=== PATIENT | male | born 1960 | race Caucasian/White ===

== ENCOUNTER 2017-03-07 08:40 | Inpatient (IN) | payer OTHER ==
--- NOTE | 2017-03-07 13:06 | HP ---
COWS - Scale Resting Pulse: 0= [place] 80 or Below Sweatin= Chills/Flushing Restless Observation: 3= Extraneous Movement Pupil Size: 2= Moderately Dilated Bone or Joint Aches: 2= Severe Diffuse Aches Runny Nose/ Eye Tearin= Nasal Congestion GI Upset > 30mins: 0= None Tremor Observation: 1= Tremor [place], Not Seen Yawning Observation: 4= Several Times/Minute Anxiety or Irritability: 2=Irritable/Anxious Goose Flesh Skin: 0=Smooth Skin COWS Score: 16 Admission ROS S - HPI Chief Complaint: DETOX TREATMENT FOR HEROIN DEPENDENCE STATING "I NEED HELP". Allergies/Adverse Reactions: Allergies Allergy/AdvReac Type Severity Reaction Status Date / Time No Known Allergies Allergy Verified 03/07/17 11:13 History of Present Illness: 56 Y/O H/M WITH A HX OF HEROIN DEPENDENCE SEEKING DETOX [place]. PT STATES WAS AT [facility] ER TO SEEK HELP AND WAS REFERRED TO DETOX HERE. FIRST TIME HERE. PT STATES HE HAS NEVER DETOXED BEFORE. Exam Limitations: No Limitations - Ebola screening Have you traveled outside of the country in the last 21 days: No Have you had contact with anyone from an Ebola affected area: No Have you been sick,other than usual withdrawal symptoms: No Do you have a fever: No - Review of Systems Constitutional: Chills, Night Sweats, Changes in sleep EENT: reports: Dental Problems (MISSING TEETH) Respiratory: reports: No Symptoms reported Cardiac: reports: Lightheadedness GI: reports: Constipated, Diarrhea, Nausea, Poor Fluid Intake, Vomiting : reports: Frequency Musculoskeletal: reports: No Symptoms Reported Integumentary: reports: No Symptoms Reported Neuro: reports: Tremors, Dizziness Endocrine: reports: No Symptoms Reported Hematology: reports: No Symptoms Reported Psychiatric: reports: Orientated x3, Anxious, Depressed Other Systems: Reviewed and Negative Patient History - Patient Medical History Hx Anemia: No Hx Asthma: No Hx Chronic Obstructive Pulmonary Disease (COPD): No Hx Cardiac Disorders: No Hx Hypertension: Yes (not on meds.) Hx Hypercholesterolemia: Yes (NOT ON MED) HX Cerebrovascular Accident: No Hx Seizures: No Hx Diabetes: No Hx Gastrointestinal Disorders: No Hx Genitourinary Disorders: No Hx Sexually Transmitted Disorders: No Hx Renal Disease (ESRD): No Hx Thyroid Disease: No Hx Human Immunodeficiency Virus (HIV): No (NEGATIVE HX) Hx Hepatitis C: No Hx Depression: Yes (NOT CURRENTLY ON MED) Hx Suicide Attempt: No (SELF CUTTING 15 YRS AGO; DENIES S/H IDEATIONS TODAY.) Hx Bipolar Disorder: No Hx Schizophrenia: No - Patient Surgical History Past Surgical History: Yes Hx Orthopedic Surgery: Yes (L wrist sx) Anesthesia Reaction: No - PPD History Previous Implant?: Yes Documented Results: Negative w/o proof Implanted On Prior R Admission?: No - Reproductive History Patient is a Female of Child Bearing Age (11 -55 yrs old): No (MALE) Patient : (N/A) - Smoking Cessation Smoking history: Current every day smoker Have you smoked in the past 12 months: Yes Aproximately how many cigarettes per day: 2 Hx Chewing Tobacco Use: No Initiated information on smoking cessation: Yes 'Breaking Loose' booklet given: 03/07/17 - Substance & Tx. History Hx Alcohol Use: No (DENIES) Hx Substance Use: Yes (HEROIN) Substance Use Type: Heroin Hx Substance Use Treatment: No (DENIES PREVIOUS DRUG TX) - Substances Abused Heroin Route: Inhalation Frequency: Daily Amount used: 3 BAGS Age of first use: 22 Date of Last Use: 03/07/17 Family Disease History - Family Disease History Family Disease History: Diabetes: Mother Admission Physical Exam S - Vital Signs Vital Signs: Vital Signs - 24 hr 03/07/17 11:00 Temperature 97 F L Pulse Rate 73 Respiratory 19 Rate Blood Pressure 143/101 - Physical General Appearance: Yes: Moderate Distress, Obese, Irritable, Anxious HEENTM: Yes: EOMI, Normocephalic, HUANG, Pharynx Normal Respiratory: Yes: Chest Non-Tender, Lungs Clear, Normal Breath Sounds, No Respiratory Distress Neck: Yes: No masses,lesions,Nodules, Supple, Trachea in good position Breast: Yes: Breast Exam Deferred Cardiology: Yes: Regular Rhythm, Regular Rate, S1, S2 Abdominal: Yes: Normal Bowel Sounds, Non Tender, Soft, Protuberent Genitourinary: Yes: Other (N/C) Back: Yes: Within Normal Limits Musculoskeletal: Yes: full range of Motion, Gait Steady Extremities: Yes: Normal Range of Motion, Non-Tender, Other (BROWN DISCOLORATION OF SKIN OF BOTH LOWER EXTREMITIES.) 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 - Detox or Rehab [facility] Level of Care: Medically Managed Detox Regimen/Protocol: Methadone [facility] Breath Alcohol Content Breath Alcohol Content: 0 Urine Drug Screen - Results Drug Screen Negative: No Urine Drug Screen Results: OPI-Opiates, TCA-Tricyclic Antidepress
[2017-03-07] MEDS ORDERED: MENTHOL/PHENOL 1 EACH UD MM PRN (14:32)
[2017-03-07] MEDS ORDERED: MAGNESIUM CITRATE 300 ML BOTTLE PO PRN (14:32)
[2017-03-07] MEDS ORDERED: NICOTINE POLACRILEX 2 MG GUM BUC PRN (14:32)
[2017-03-07] MEDS ORDERED: guaiFENesin/D-METHORPHAN HB 10 ML UNIT-DOSE CUPS PO PRN (14:32)
[2017-03-07] MEDS ORDERED: LOPERAMIDE HCL 2 MG CAPSULE PO PRN (14:32)
[2017-03-07] MEDS ORDERED: MAGNESIUM HYDROX 2400MG/30ML ORAL SUSPENSION 30 ML CUP PO PRN (14:32)
[2017-03-07] MEDS ORDERED: P-EPHED 60MG/TRIPROLIDI 2.5MG TABLET PO PRN (14:32)
[2017-03-07] MEDS ORDERED: METHADONE HCL 10 MG TABLET (FOR DETOX USE ONLY) PO ONE ×2 (15:00→23:00)
[2017-03-07] MEDS: diazePAM 5 MG TABLET PO PRN ×3 (15:06→23:27)
[2017-03-07] MEDS: NICOTINE 14 MG/24 HOURS TOPICAL PATCH TD SCH (15:55)
[2017-03-07 17:27] LABS: SGOT/AST 17 U/L (15-37); SGPT/ALT 32 U/L (12-78)
[2017-03-07 17:28] LABS: URINE APPEARANCE CLEAR; URINE BILIRUBIN NEGATIVE (NEGATIVE); URINE BLOOD 3+ (NEGATIVE); URINE COLOR LT. YELLOW; URINE GLUCOSE (UA) TRACE (NEGATIVE); URINE KETONE NEGATIVE (NEGATIVE); URINE LEUK ESTERASE NEGATIVE (NEGATIVE); URINE NITRITE NEGATIVE (NEGATIVE); URINE PROTEIN NEGATIVE (NEGATIVE); URINE UROBILINOGEN 0.2 mg/dL (0.2-1.0)
[2017-03-07 17:30] LABS: ALBUMIN 3.6 g/dl (3.4-5.0); ALK PHOS 95 U/L (45-117); ANION GAP 3 (8-16); BILIRUBIN,TOTAL 0.4 mg/dL (0.2-1.0); CALCIUM 10.6 mg/dL (8.5-10.1); CO2 31 mmol/L (21-32); GLUCOSE,RANDOM 98 mg/dL (74-106); TOT PROT 7.2 g/dl (6.4-8.2)
[2017-03-07 18:24] LABS: URINE BACTERIA RARE /hpf (NONE SEEN); URINE MUCUS RARE; URINE RBC 17 /hpf (0-3); URINE WBC 1 /hpf (3-5)
[2017-03-07 20:07] LABS: MCH 30.2 pg (25.7-33.7); MCHC 33.2 g/dl (32.0-35.9); MEAN CELL VOLUME 90.8 fl (80-96); MEAN PLT VOLUME 8.6 fl (7.5-11.1); PLATELET COUNT 324 K/MM3 (134-434); RDW 14.9 % (11.9-15.9); WHITE BLOOD COUNT 9.1 K/mm3 (4.0-10.0)
[2017-03-07] MEDS: cloNIDine HCL 0.1 MG TABLET PO SCH (22:24)
[2017-03-07] MEDS: THIAMINE HCL 100 MG TABLET (FP) PO SCH (22:24)
[2017-03-07] MEDS: diphenhydrAMINE HCL 50 MG CAPSULE PO PRN (22:24)
[2017-03-08] MEDS ORDERED: METHADONE HCL 10 MG TABLET (FOR DETOX USE ONLY) PO ONE (10:00)
[2017-03-08] MEDS: NICOTINE 14 MG/24 HOURS TOPICAL PATCH TD SCH (10:18)
[2017-03-08] MEDS: cloNIDine HCL 0.1 MG TABLET PO SCH ×2 (10:18→21:58)
[2017-03-08] MEDS: PRENATAL VITAMINS W/ FOLIC ACID TABLET (FP) PO SCH (10:18)
[2017-03-08] MEDS: diazePAM 5 MG TABLET PO PRN ×2 (10:21→18:42)
--- NOTE | 2017-03-08 10:32 | EKG ---
Test Reason : Blood Pressure : / mmHG Vent. Rate : 085 BPM Atrial Rate : 085 BPM P-R Int : 142 ms QRS Dur : 086 ms QT Int : 372 ms P-R-T Axes : 069 029 053 degrees QTc Int : 442 ms NORMAL SINUS RHYTHM NONSPECIFIC ST ABNORMALITY ABNORMAL ECG NO PREVIOUS ECGS AVAILABLE Confirmed by CLIFTON KENNY MD ([id number]) on 03/08/2017 10:31:48 AM Referred By: Tino Gaines Confirmed By:CLIFTON KENNY MD
--- NOTE | 2017-03-08 11:15 | PN ---
[facility] COWS - Scale Resting Pulse: 0= [place] 80 or Below Sweatin= Chills/Flushing Restless Observation: 3= Extraneous Movement Pupil Size: 1= Pupils >than Normal Bone or Joint Aches: 2= Severe Diffuse Aches Runny Nose/ Eye Tearin= Runny Nose/Eyes GI Upset > 30mins: 2= Nausea/Diarrhea Tremor Observation of Outstretched Hands: 2= Slight Tremor Visible Yawning Observation: 1= 1-2x During Session Anxiety or Irritability: 2=Irritable/Anxious Goose Flesh Skin: 0=Smooth Skin COWS Score: 16 S Progress Note (SOAP) Subjective: ALERT,IRRITABLE,ANXIOUS,INTERRUPTED SEEP,TREMOR,PAIN IN THE BODY Objective: 03/08/17 11:11 Vital Signs Temperature 97.3 F L 03/08/17 10:00 Pulse Rate 73 03/08/17 10:00 Respiratory Rate 18 03/08/17 10:00 Blood Pressure 145/86 03/08/17 10:00 O2 Sat by Pulse Oximetry (%) EKG NSR,NON SPECIFIC ST NO CHEST PAIN,NO SOB,NO DIZZINESS Laboratory Last Values WBC 9.1 K/mm3 (4.0-10.0) 03/07/17 14:50 RBC 4.10 M/mm3 (4.00-5.60) 03/07/17 14:50 Hgb 12.4 GM/dL (11.7-16.9) 03/07/17 14:50 Hct 37.3 % (35.4-49) 03/07/17 14:50 MCV 90.8 fl (80-96) 03/07/17 14:50 MCH 30.2 pg (25.7-33.7) 03/07/17 14:50 MCHC 33.2 g/dl (32.0-35.9) 03/07/17 14:50 RDW 14.9 % (11.9-15.9) 03/07/17 14:50 Plt Count 324 K/MM3 (134-434) 03/07/17 14:50 MPV 8.6 fl (7.5-11.1) 03/07/17 14:50 Sickle Cell Screen Negative (NEGATIVE) 03/07/17 14:00 Sodium 138 mmol/L (136-145) 03/07/17 14:00 Potassium 5.1 mmol/L (3.5-5.1) 03/07/17 14:00 Chloride 104 mmol/L (98-107) 03/07/17 14:00 Carbon Dioxide 31 mmol/L (21-32) 03/07/17 14:00 Anion Gap 3 (8-16) L 03/07/17 14:00 BUN 23 mg/dL (7-18) H 03/07/17 14:00 Creatinine 1.0 mg/dL (0.7-1.3) 03/07/17 14:00 Creat Clearance w eGFR > 60 (>60) 03/07/17 14:00 Random Glucose 98 mg/dL (74-106) 03/07/17 14:00 Calcium 10.6 mg/dL (8.5-10.1) H 03/07/17 14:00 Total Bilirubin 0.4 mg/dL (0.2-1.0) 03/07/17 14:00 AST 17 U/L (15-37) 03/07/17 14:00 ALT 32 U/L (12-78) 03/07/17 14:00 Alkaline Phosphatase 95 U/L (45-117) 03/07/17 14:00 Total Protein 7.2 g/dl (6.4-8.2) 03/07/17 14:00 Albumin 3.6 g/dl (3.4-5.0) 03/07/17 14:00 Urine Color Lt. yellow 03/07/17 14:00 Urine Appearance Clear 03/07/17 14:00 Urine pH 6.0 (5.0-8.0) 03/07/17 14:00 Ur Specific [place] 1.020 (1.005-1.025) 03/07/17 14:00 Urine Protein Negative (NEGATIVE) 03/07/17 14:00 Urine Glucose (UA) Trace (NEGATIVE) H 03/07/17 14:00 Urine Ketones Negative (NEGATIVE) 03/07/17 14:00 Urine Blood 3+ (NEGATIVE) H 03/07/17 14:00 Urine Nitrite Negative (NEGATIVE) 03/07/17 14:00 Urine Bilirubin Negative (NEGATIVE) 03/07/17 14:00 Urine Urobilinogen 0.2 mg/dL (0.2-1.0) 03/07/17 14:00 Ur Leukocyte Esterase Negative (NEGATIVE) 03/07/17 14:00 Urine RBC 17 /hpf (0-3) 03/07/17 14:00 Urine WBC 1 /hpf (3-5) 03/07/17 14:00 Urine Bacteria Rare /hpf (NONE SEEN) 03/07/17 14:00 Urine Mucus Rare 03/07/17 14:00 RPR Titer Nonreactive (NONREACTIVE) 03/07/17 14:00 03/08/17 11:14 Assessment: 03/08/17 11:14 WITHDRAWAL SYMPTOM Plan: CONTINUE DETOX,ENCOURAGE ORAL FLUID,REPEAT CMP IN AM
--- NOTE | 2017-03-08 14:21 | CONSULT ---
[facility] Psychiatric Consult - Data Date of interview: 03/08/17 Admission source: [facility] Identifying data: First admission to [facility] for this 56 y/o male seeking detox treatment on for heroin,cocaine (crack) and marihuana dependence (self-report but tox screen is positive only for opiate).Patient is ,a father of one,domiciled,unemployed and supported on Social Security benefits. Substance Abuse History: Discussed with patient in this interview.Mr Cervantes confirms this [facility] report. Smoking Cessation. Smoking history: Current every day smoker. Have you smoked in the past 12 months: Yes. Aproximately how many cigarettes per day: 2. Hx Chewing Tobacco Use: No. Initiated information on smoking cessation: Yes. 'Breaking Loose' booklet given: 03/07/17. - Substance & Tx. History. Hx Alcohol Use: No (DENIES). Hx Substance Use: Yes (HEROIN). Substance Use Type: Heroin. Hx Substance Use Treatment: No (DENIES PREVIOUS DRUG [place]). - Substances Abused. Heroin. Route: Inhalation. Frequency: Daily. Amount used: 3 BAGS. Age of first use: 22. Date of Last Use: 03/07/17 Medical History: Hypertension,hypercholesterolemia and obesity. Psychiatric History: Diagnosed with Schizoaffective Disorder.Patient reports past psychiatric hospitalizations at [facility] in [place] and [facility] in the [place].He indicates that he used to be prescribed risperdal to " stop the voices " and he wishes to resume that drug in this treatment.Mr Cervantes has droppped out of [facility] care for months.Patient admits to a history of suicide attempts by various means (ingestion of rat poison, deliberate self-exposure to oncoming traffic). Physical/Sexual Abuse/Trauma History: Patient denies. Additional Comment: Urine Drug Screen Results: OPI-Opiates, TCA-Tricyclic Antidepressant.Noted. Mental Status Exam - Mental Status Exam Alert and Oriented to: Time, Place, Person Cognitive Function: Good Patient Appearance: Well Groomed (obese,short stature) Mood: Hopeful, Euthymic Affect: Appropriate, Normal Range Patient Behavior: Fatigued, Appropriate, Cooperative Speech Pattern: Clear Voice Loudness: Normal Thought Process: Goal Oriented Thought Disorder: Not Present Hallucinations: Denies Suicidal Ideation: Denies Homicidal Ideation: Denies Insight/Judgement: Poor Sleep: Well Appetite: Good Muscle strength/Tone: Normal Gait/Station: Normal Psychiatric Findings - Problem List ([place] 1, 2,3) (1) Opioid dependence with withdrawal Current Visit: Yes Status: Acute (2) Nicotine dependence Current Visit: Yes Status: Acute (3) Substance induced mood disorder Current Visit: Yes Status: Acute (4) Schizoaffective disorder Current Visit: Yes Status: Chronic Comment: Self-report.Non compliant with medications. (5) Hypertension Current Visit: Yes Status: Chronic Qualifiers: Hypertension type: essential hypertension Qualified Code(s): I10 - Essential (primary) hypertension Comment: NO CURRENT MEDS (6) Hypercholesterolemia Current Visit: Yes Status: Suspected Comment: NO MEDS - Initial Treatment Plan Initial Treatment Plan: Psychoeducation.Detoxification.Medications reconciliation : no Home medications. Review of pharmacy claims : not helpful.No scripts found on record.Will observe without medications (patient asymptomatic).Advised to return to [facility] care after discharge.Patient agrees.Observation.
[2017-03-08] MEDS: diphenhydrAMINE HCL 50 MG CAPSULE PO PRN (21:58)
[2017-03-08] MEDS: THIAMINE HCL 100 MG TABLET (FP) PO SCH (21:58)
[2017-03-09] MEDS: diazePAM 5 MG TABLET PO PRN ×3 (00:43→22:54)
[2017-03-09] MEDS: MAG HYDROX/AL HYDROX/SIMETH 30 ML UNIT-DOSE CUP PO PRN ×3 (04:49→23:44)
[2017-03-09] MEDS ORDERED: METHADONE HCL 5 MG TABLET (FOR DETOX USE ONLY) PO ONE (10:00)
[2017-03-09] MEDS: cloNIDine HCL 0.1 MG TABLET PO SCH ×2 (10:47→22:55)
[2017-03-09] MEDS: PRENATAL VITAMINS W/ FOLIC ACID TABLET (FP) PO SCH (10:47)
[2017-03-09] MEDS: NICOTINE 14 MG/24 HOURS TOPICAL PATCH TD SCH (10:48)
--- NOTE | 2017-03-09 12:47 | PN ---
[facility] COWS - Scale Resting Pulse: 0= [place] 80 or Below Sweatin= Chills/Flushing Restless Observation: 3= Extraneous Movement Pupil Size: 1= Pupils >than Normal Bone or Joint Aches: 2= Severe Diffuse Aches Runny Nose/ Eye Tearin= Runny Nose/Eyes GI Upset > 30mins: 2= Nausea/Diarrhea Tremor Observation of Outstretched Hands: 2= Slight Tremor Visible Yawning Observation: 1= 1-2x During Session Anxiety or Irritability: 2=Irritable/Anxious Goose Flesh Skin: 0=Smooth Skin COWS Score: 16 S Progress Note (SOAP) Subjective: alert,irritable,anxious,interrupted sleep,pain in the body and back Objective: 03/09/17 12:46 Vital Signs Temperature 97.7 F 03/09/17 09:55 Pulse Rate 72 03/09/17 09:55 Respiratory Rate 20 03/09/17 09:55 Blood Pressure 139/96 03/09/17 09:55 O2 Sat by Pulse Oximetry (%) Laboratory Last Values WBC 9.1 K/mm3 (4.0-10.0) 03/07/17 14:50 RBC 4.10 M/mm3 (4.00-5.60) 03/07/17 14:50 Hgb 12.4 GM/dL (11.7-16.9) 03/07/17 14:50 Hct 37.3 % (35.4-49) 03/07/17 14:50 MCV 90.8 fl (80-96) 03/07/17 14:50 MCH 30.2 pg (25.7-33.7) 03/07/17 14:50 MCHC 33.2 g/dl (32.0-35.9) 03/07/17 14:50 RDW 14.9 % (11.9-15.9) 03/07/17 14:50 Plt Count 324 K/MM3 (134-434) 03/07/17 14:50 MPV 8.6 fl (7.5-11.1) 03/07/17 14:50 Sickle Cell Screen Negative (NEGATIVE) 03/07/17 14:00 Sodium 138 mmol/L (136-145) 03/07/17 14:00 Potassium 5.1 mmol/L (3.5-5.1) 03/07/17 14:00 Chloride 104 mmol/L (98-107) 03/07/17 14:00 Carbon Dioxide 31 mmol/L (21-32) 03/07/17 14:00 Anion Gap 3 (8-16) L 03/07/17 14:00 BUN 23 mg/dL (7-18) H 03/07/17 14:00 Creatinine 1.0 mg/dL (0.7-1.3) 03/07/17 14:00 Creat Clearance w eGFR > 60 (>60) 03/07/17 14:00 Random Glucose 98 mg/dL (74-106) 03/07/17 14:00 Calcium 10.6 mg/dL (8.5-10.1) H 03/07/17 14:00 Total Bilirubin 0.4 mg/dL (0.2-1.0) 03/07/17 14:00 AST 17 U/L (15-37) 03/07/17 14:00 ALT 32 U/L (12-78) 03/07/17 14:00 Alkaline Phosphatase 95 U/L (45-117) 03/07/17 14:00 Total Protein 7.2 g/dl (6.4-8.2) 03/07/17 14:00 Albumin 3.6 g/dl (3.4-5.0) 03/07/17 14:00 Urine Color Lt. yellow 03/07/17 14:00 Urine Appearance Clear 03/07/17 14:00 Urine pH 6.0 (5.0-8.0) 03/07/17 14:00 Ur Specific [place] 1.020 (1.005-1.025) 03/07/17 14:00 Urine Protein Negative (NEGATIVE) 03/07/17 14:00 Urine Glucose (UA) Trace (NEGATIVE) H 03/07/17 14:00 Urine Ketones Negative (NEGATIVE) 03/07/17 14:00 Urine Blood 3+ (NEGATIVE) H 03/07/17 14:00 Urine Nitrite Negative (NEGATIVE) 03/07/17 14:00 Urine Bilirubin Negative (NEGATIVE) 03/07/17 14:00 Urine Urobilinogen 0.2 mg/dL (0.2-1.0) 03/07/17 14:00 Ur Leukocyte Esterase Negative (NEGATIVE) 03/07/17 14:00 Urine RBC 17 /hpf (0-3) 03/07/17 14:00 Urine WBC 1 /hpf (3-5) 03/07/17 14:00 Urine Bacteria Rare /hpf (NONE SEEN) 03/07/17 14:00 Urine Mucus Rare 03/07/17 14:00 RPR Titer Nonreactive (NONREACTIVE) 03/07/17 14:00 Assessment: 03/09/17 12:48 withdrawal symptom Plan: continue detox,repeat ua,repeat calcium in am
[2017-03-09] MEDS: diphenhydrAMINE HCL 50 MG CAPSULE PO PRN (22:55)
[2017-03-09] MEDS: THIAMINE HCL 100 MG TABLET (FP) PO SCH (22:55)
[2017-03-10] MEDS ORDERED: METHADONE HCL 5 MG TABLET (FOR DETOX USE ONLY) PO ONE (10:00)
[2017-03-10 10:53] LABS: ALBUMIN 3.1 g/dl (3.4-5.0); ANION GAP 5 (8-16); CALCIUM 10.3 mg/dL (8.5-10.1); CO2 29 mmol/L (21-32)
[2017-03-10 10:59] LABS: ALK PHOS 92 U/L (45-117); BILIRUBIN,TOTAL 0.5 mg/dL (0.2-1.0); GLUCOSE,RANDOM 98 mg/dL (74-106); SGOT/AST 17 U/L (15-37); SGPT/ALT 33 U/L (12-78); TOT PROT 6.2 g/dl (6.4-8.2)
[2017-03-10] MEDS: cloNIDine HCL 0.1 MG TABLET PO SCH ×2 (11:12→23:05)
[2017-03-10] MEDS: diazePAM 5 MG TABLET PO PRN (11:12)
[2017-03-10] MEDS: PRENATAL VITAMINS W/ FOLIC ACID TABLET (FP) PO SCH (11:13)
[2017-03-10] MEDS: NICOTINE 14 MG/24 HOURS TOPICAL PATCH TD SCH (11:13)
--- NOTE | 2017-03-10 13:38 | PN ---
S Progress Note (SOAP) Subjective: ALERT,IRRITABLE,ANXIOUS,INTERRUPTED SLEEP,PAIN IN THE BODY Objective: 03/10/17 13:36 Vital Signs Temperature 97.9 F 03/10/17 10:42 Pulse Rate 81 03/10/17 10:42 Respiratory Rate 20 03/10/17 10:42 Blood Pressure 137/79 03/10/17 10:42 O2 Sat by Pulse Oximetry (%) 03/10/17 13:36 Abnormal Lab Results 03/10/17 07:45 Anion Gap 5 L BUN 27 H Calcium 10.3 H Total Protein 6.2 L Albumin 3.1 L Assessment: 03/10/17 13:37 WITHDRAWAL SYMPTOM Plan: CONTINUE DETOX,ENCOURAGE ORAL FLUID
[2017-03-10] MEDS: hydrOXYzine PAMOATE 25 MG CAPSULE (FP) PO PRN (14:46)
[2017-03-10] MEDS: THIAMINE HCL 100 MG TABLET (FP) PO SCH (23:05)
[2017-03-10] MEDS: diphenhydrAMINE HCL 50 MG CAPSULE PO PRN (23:06)
[2017-03-11] MEDS ORDERED: METHADONE HCL 10 MG TABLET (FOR DETOX USE ONLY) PO ONE (10:00)
[2017-03-11] MEDS: cloNIDine HCL 0.1 MG TABLET PO SCH ×2 (10:41→21:24)
[2017-03-11] MEDS: NICOTINE 14 MG/24 HOURS TOPICAL PATCH TD SCH (10:42)
[2017-03-11] MEDS: PRENATAL VITAMINS W/ FOLIC ACID TABLET (FP) PO SCH (10:42)
[2017-03-11] MEDS: hydrOXYzine PAMOATE 25 MG CAPSULE (FP) PO PRN (10:44)
--- NOTE | 2017-03-11 11:59 | PN ---
S Progress Note (SOAP) Subjective: ALERT,NO COMPLAINT Objective: 03/11/17 11:56 Vital Signs Temperature 97.2 F L 03/11/17 10:41 Pulse Rate 84 03/11/17 10:41 Respiratory Rate 20 03/11/17 10:41 Blood Pressure 149/87 03/11/17 10:41 O2 Sat by Pulse Oximetry (%) Assessment: 03/11/17 11:56 STABLE FOR DISCHARGE Plan: TRANSFER TO REHAB FOR FURTHER LEVEL OF CARE
--- NOTE | 2017-03-11 12:04 | DS ---
[facility] Detox Discharge Summary Admission Date: 03/07/17 Discharge Date: 03/11/17 - History Present History: Opioid Dependence Additional Comments: TRANSFER TO REHAB FOR FURTHER LEVEL OF CARE Pertinent Past History: HYPERTENSION HYPERCHOLESTEROLEMIA SCHIZOAFFECTIVE DISORDER - Physical Exam Results Vital Signs: Vital Signs Temperature 97.2 F L 03/11/17 10:41 Pulse Rate 84 03/11/17 10:41 Respiratory Rate 20 03/11/17 10:41 Blood Pressure 149/87 03/11/17 10:41 O2 Sat by Pulse Oximetry (%) Pertinent Admission Physical Exam Findings: WITHDRAWAL SYMPTOM - Treatment Hospital Course: Detox Protocol Followed, Detoxed Safely, Responded well, Discharged Condition Good, Rehab Referral Accepted Patient has Accepted a Rehab Referral to: [facility] - Medication Discharge Medications: Ambulatory Orders NK [No Known Home Medication] 03/07/17 - Diagnosis (1) Nicotine dependence Current Visit: Yes Status: Acute (2) Opioid dependence with withdrawal Current Visit: Yes Status: Acute (3) Substance induced mood disorder Current Visit: Yes Status: Acute (4) Hypertension Current Visit: Yes Status: Chronic Qualifiers: Hypertension type: essential hypertension Qualified Code(s): I10 - Essential (primary) hypertension (5) Obesity (BMI 30-39.9) Current Visit: Yes Status: Chronic (6) Schizoaffective disorder Current Visit: Yes Status: Chronic (7) Hypercholesterolemia Current Visit: Yes Status: Suspected - AMA Did Patient Leave Against Medical Advice: No
[2017-03-11 15:38] VITALS: BMI 41.3
[2017-03-11] MEDS: MAG HYDROX/AL HYDROX/SIMETH 30 ML UNIT-DOSE CUP PO PRN (20:44)
[2017-03-11] MEDS: THIAMINE HCL 100 MG TABLET (FP) PO SCH (21:24)
[2017-03-11] MEDS: diphenhydrAMINE HCL 50 MG CAPSULE PO PRN (21:24)
[2017-03-12] MEDS: diphenhydrAMINE HCL 50 MG CAPSULE PO PRN ×2 (00:56→21:24)
[2017-03-12] MEDS: MAG HYDROX/AL HYDROX/SIMETH 30 ML UNIT-DOSE CUP PO PRN ×2 (02:35→16:18)
[2017-03-12] MEDS ORDERED: METHADONE HCL 5 MG TABLET (FOR DETOX USE ONLY) PO ONE (06:00)
[2017-03-12] MEDS: ACETAMINOPHEN 325 MG TABLET (FP) PO PRN ×2 (06:20→16:18)
[2017-03-12] MEDS: cloNIDine HCL 0.1 MG TABLET PO SCH ×2 (09:53→21:22)
[2017-03-12] MEDS: PRENATAL VITAMINS W/ FOLIC ACID TABLET (FP) PO SCH (09:53)
[2017-03-12] MEDS: NICOTINE 14 MG/24 HOURS TOPICAL PATCH TD SCH (09:54)
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
[2017-03-12 12:40] LABS: HIV 1 & 2 AB NEGATIVE; HIV 1 AGp24 NEGATIVE
[2017-03-12] MEDS: THIAMINE HCL 100 MG TABLET (FP) PO SCH (21:22)
[2017-03-12] MEDS: risperiDONE 1 MG TABLET (FP) PO SCH (21:22)
[2017-03-13] MEDS: PRENATAL VITAMINS W/ FOLIC ACID TABLET (FP) PO SCH (09:43)
[2017-03-13] MEDS: NICOTINE 14 MG/24 HOURS TOPICAL PATCH TD SCH (09:43)
[2017-03-13] MEDS: cloNIDine HCL 0.1 MG TABLET PO SCH ×2 (09:44→21:20)
[2017-03-13] MEDS: FLUoxetine HCL 10 MG CAPSULE (FP) PO SCH (09:44)
[2017-03-13] MEDS: risperiDONE 1 MG TABLET (FP) PO SCH (21:20)
[2017-03-13] MEDS: THIAMINE HCL 100 MG TABLET (FP) PO SCH (21:20)
[2017-03-13] MEDS: diphenhydrAMINE HCL 50 MG CAPSULE PO PRN (21:20)
[2017-03-14] MEDS: PRENATAL VITAMINS W/ FOLIC ACID TABLET (FP) PO SCH (09:44)
[2017-03-14] MEDS: cloNIDine HCL 0.1 MG TABLET PO SCH ×2 (09:44→21:29)
[2017-03-14] MEDS: NICOTINE 14 MG/24 HOURS TOPICAL PATCH TD SCH (09:44)
[2017-03-14] MEDS: FLUoxetine HCL 10 MG CAPSULE (FP) PO SCH (09:44)
[2017-03-14] MEDS: risperiDONE 1 MG TABLET (FP) PO SCH (21:29)
[2017-03-14] MEDS: diphenhydrAMINE HCL 50 MG CAPSULE PO PRN (21:29)
[2017-03-14] MEDS: THIAMINE HCL 100 MG TABLET (FP) PO SCH (21:29)
[2017-03-15] MEDS: cloNIDine HCL 0.1 MG TABLET PO SCH ×2 (09:36→21:33)
[2017-03-15] MEDS: FLUoxetine HCL 10 MG CAPSULE (FP) PO SCH (09:36)
[2017-03-15] MEDS: PRENATAL VITAMINS W/ FOLIC ACID TABLET (FP) PO SCH (09:36)
[2017-03-15] MEDS: NICOTINE 14 MG/24 HOURS TOPICAL PATCH TD SCH (09:37)
[2017-03-15] MEDS: diphenhydrAMINE HCL 50 MG CAPSULE PO PRN (21:33)
[2017-03-15] MEDS: risperiDONE 1 MG TABLET (FP) PO SCH (21:33)
[2017-03-15] MEDS: THIAMINE HCL 100 MG TABLET (FP) PO SCH (21:33)
[2017-03-15] MEDS: HYDROCORTISONE 2.5% TOPICAL CREAM 30 GM TUBE TP SCH (21:34)
[2017-03-16] MEDS: MAG HYDROX/AL HYDROX/SIMETH 30 ML UNIT-DOSE CUP PO PRN ×2 (00:39→19:47)
[2017-03-16] MEDS: PRENATAL VITAMINS W/ FOLIC ACID TABLET (FP) PO SCH (09:26)
[2017-03-16] MEDS: FLUoxetine HCL 10 MG CAPSULE (FP) PO SCH (09:26)
[2017-03-16] MEDS: HYDROCORTISONE 2.5% TOPICAL CREAM 30 GM TUBE TP SCH ×2 (09:26→21:47)
[2017-03-16] MEDS: cloNIDine HCL 0.1 MG TABLET PO SCH ×2 (09:26→21:46)
[2017-03-16] MEDS: NICOTINE 14 MG/24 HOURS TOPICAL PATCH TD SCH (09:26)
[2017-03-16] MEDS: risperiDONE 1 MG TABLET (FP) PO SCH (21:46)
[2017-03-16] MEDS: THIAMINE HCL 100 MG TABLET (FP) PO SCH (21:47)
[2017-03-16] MEDS: diphenhydrAMINE HCL 50 MG CAPSULE PO PRN (21:48)
[2017-03-17] MEDS: cloNIDine HCL 0.1 MG TABLET PO SCH ×2 (09:31→21:26)
[2017-03-17] MEDS: FLUoxetine HCL 10 MG CAPSULE (FP) PO SCH (09:31)
[2017-03-17] MEDS: HYDROCORTISONE 2.5% TOPICAL CREAM 30 GM TUBE TP SCH ×2 (09:31→21:25)
[2017-03-17] MEDS: PRENATAL VITAMINS W/ FOLIC ACID TABLET (FP) PO SCH (09:31)
[2017-03-17] MEDS: NICOTINE 14 MG/24 HOURS TOPICAL PATCH TD SCH (09:31)
[2017-03-17] MEDS: diphenhydrAMINE HCL 50 MG CAPSULE PO PRN (21:25)
[2017-03-17] MEDS: risperiDONE 1 MG TABLET (FP) PO SCH (21:26)
[2017-03-17] MEDS: THIAMINE HCL 100 MG TABLET (FP) PO SCH (21:26)
[2017-03-17] MEDS: MAG HYDROX/AL HYDROX/SIMETH 30 ML UNIT-DOSE CUP PO PRN (23:13)
[2017-03-18] MEDS: IBUPROFEN 400 MG TABLET (FP) PO PRN ×3 (06:39→17:07)
[2017-03-18] MEDS: PRENATAL VITAMINS W/ FOLIC ACID TABLET (FP) PO SCH (09:49)
[2017-03-18] MEDS: FLUoxetine HCL 10 MG CAPSULE (FP) PO SCH (09:50)
[2017-03-18] MEDS: cloNIDine HCL 0.1 MG TABLET PO SCH ×2 (09:50→21:18)
[2017-03-18] MEDS: NICOTINE 14 MG/24 HOURS TOPICAL PATCH TD SCH (10:57)
[2017-03-18] MEDS: HYDROCORTISONE 2.5% TOPICAL CREAM 30 GM TUBE TP SCH ×2 (10:57→21:18)
[2017-03-18] MEDS ORDERED: LIDOCAINE VISCOUS 2% ORAL/TOP 20 ML UNIT-DOSE CUP MM PRN (14:30)
[2017-03-18] MEDS: WITCH HAZEL 50% (TUCKS) 40 PAD/JAR PAD TP PRN ×2 (14:31→18:18)
[2017-03-18] MEDS ORDERED: PT OWN MED DRAWER 7, Y5N ONE ×2 (14:33→18:18)
--- NOTE | 2017-03-18 14:35 | PN ---
[facility] Progress Note Note: pain in the gum and left lower molar have dental cavity with filling dental cavity with gingivitis pen vee k 500 mgs po q 6hrs for 7 days lidocaine 2% prn motrin 400 mgs po q 6hrs prn
[2017-03-18] MEDS: PENICILLIN V POTASSIUM 500 MG TABLET PO SCH ×2 (17:05→23:53)
[2017-03-18] MEDS: risperiDONE 1 MG TABLET (FP) PO SCH (21:18)
[2017-03-18] MEDS: THIAMINE HCL 100 MG TABLET (FP) PO SCH (21:18)
[2017-03-18] MEDS: diphenhydrAMINE HCL 50 MG CAPSULE PO PRN (21:18)
[2017-03-19] MEDS: PENICILLIN V POTASSIUM 500 MG TABLET PO SCH ×3 (05:49→17:03)
[2017-03-19] MEDS: IBUPROFEN 400 MG TABLET (FP) PO PRN ×2 (05:50→21:28)
[2017-03-19] MEDS: HYDROCORTISONE 2.5% TOPICAL CREAM 30 GM TUBE TP SCH ×2 (09:56→21:27)
[2017-03-19] MEDS: PRENATAL VITAMINS W/ FOLIC ACID TABLET (FP) PO SCH (09:56)
[2017-03-19] MEDS: cloNIDine HCL 0.1 MG TABLET PO SCH ×2 (09:56→21:27)
[2017-03-19] MEDS: WITCH HAZEL 50% (TUCKS) 40 PAD/JAR PAD TP PRN (09:56)
[2017-03-19] MEDS: NICOTINE 14 MG/24 HOURS TOPICAL PATCH TD SCH (09:56)
[2017-03-19] MEDS: FLUoxetine HCL 10 MG CAPSULE (FP) PO SCH (09:56)
[2017-03-19] MEDS ORDERED: PT OWN MED DRAWER 7, Y5N ONE ×3 (09:58→22:49)
--- NOTE | 2017-03-19 13:11 | PN ---
[facility] Progress Note Note: tinea pedis both feet,tinactin cream bid
[2017-03-19] MEDS: TOLNAFTATE 1% CREAM 15 GM TUBE TP SCH ×2 (14:06→21:26)
[2017-03-19] MEDS: risperiDONE 1 MG TABLET (FP) PO SCH (21:27)
[2017-03-19] MEDS: diphenhydrAMINE HCL 50 MG CAPSULE PO PRN (21:27)
[2017-03-19] MEDS: THIAMINE HCL 100 MG TABLET (FP) PO SCH (21:30)
[2017-03-20] MEDS: PENICILLIN V POTASSIUM 500 MG TABLET PO SCH ×5 (06:01→23:35)
[2017-03-20] MEDS: PRENATAL VITAMINS W/ FOLIC ACID TABLET (FP) PO SCH (09:54)
[2017-03-20] MEDS: cloNIDine HCL 0.1 MG TABLET PO SCH ×2 (09:54→21:21)
[2017-03-20] MEDS: FLUoxetine HCL 10 MG CAPSULE (FP) PO SCH (09:54)
[2017-03-20] MEDS: NICOTINE 14 MG/24 HOURS TOPICAL PATCH TD SCH (09:54)
[2017-03-20] MEDS: HYDROCORTISONE 2.5% TOPICAL CREAM 30 GM TUBE TP SCH ×2 (09:55→21:19)
[2017-03-20] MEDS: TOLNAFTATE 1% CREAM 15 GM TUBE TP SCH ×2 (09:55→21:19)
[2017-03-20] MEDS: IBUPROFEN 400 MG TABLET (FP) PO PRN ×2 (09:56→21:20)
[2017-03-20] MEDS: risperiDONE 1 MG TABLET (FP) PO SCH (21:21)
[2017-03-20] MEDS: THIAMINE HCL 100 MG TABLET (FP) PO SCH (21:22)
[2017-03-21] MEDS: PENICILLIN V POTASSIUM 500 MG TABLET PO SCH ×4 (06:14→23:28)
[2017-03-21] MEDS: PRENATAL VITAMINS W/ FOLIC ACID TABLET (FP) PO SCH (09:58)
[2017-03-21] MEDS: NICOTINE 14 MG/24 HOURS TOPICAL PATCH TD SCH (09:59)
[2017-03-21] MEDS: FLUoxetine HCL 10 MG CAPSULE (FP) PO SCH (09:59)
[2017-03-21] MEDS: cloNIDine HCL 0.1 MG TABLET PO SCH ×2 (09:59→21:39)
[2017-03-21] MEDS: HYDROCORTISONE 2.5% TOPICAL CREAM 30 GM TUBE TP SCH ×2 (10:01→21:39)
[2017-03-21] MEDS ORDERED: PT OWN MED DRAWER 7, Y5N ONE (10:01)
[2017-03-21] MEDS: TOLNAFTATE 1% CREAM 15 GM TUBE TP SCH ×2 (10:01→21:39)
--- NOTE | 2017-03-21 14:42 | PN ---
Psychiatric Progress Note Vital Signs: Vital Signs Period Temp Pulse Resp BP Sys/Scott Pulse Ox Last 24 Hr 97.6 F 79-87 18-20 146-153/80-96 Date of Session: 03/21/17 Chief Complaint:: discharge visit HPI: Patient has addressed opioid, nicotine dependence comorbid Schsizoaffective disorder. ROS: Hypertension,hypercholesterolemia and obesity medically managed. Current Medications: Active Medications Generic Name Dose Route Start Last Admin Trade Name Freq PRN Reason Stop Dose Admin Acetaminophen 650 mg 03/07/17 14:32 03/12/17 16:18 Tylenol - PO 650 mg Q4H PRN Administration FEVER OR PAIN Al Hydroxide/Mg Hydroxide 30 ml 03/07/17 14:32 03/17/17 23:13 Mylanta Oral Suspension - PO 30 ml Q6H PRN Administration DYSPEPSIA Clonidine 0.1 mg 03/07/17 22:00 03/21/17 09:59 Catapres - PO 0.1 mg BID MARIANN Administration Diphenhydramine HCl 50 mg 03/07/17 14:32 03/19/17 21:27 Benadryl - PO 50 mg HSMR1 PRN Administration INSOMNIA Eucalyptus/Menthol/Phenol/Sorbitol 1 each 03/07/17 14:32 Cepastat Lozenge - MM Q4H PRN SORE THROAT Fluoxetine HCl 10 mg 03/13/17 10:00 03/21/17 09:59 Prozac - PO 10 mg DAILY MARIANN Administration Guaifenesin 10 ml 03/07/17 14:32 Robitussin Dm - PO Q6H PRN COUGH Hydrocortisone 1 applic 03/15/17 22:00 03/21/17 10:01 Anusol 2.5% Hc Cream - TP 1 applic BID MARIANN Administration Hydroxyzine Pamoate 25 mg 03/07/17 14:32 03/11/17 10:44 Vistaril - PO 25 mg Q4H PRN Administration AGITATION Ibuprofen 400 mg 03/07/17 14:32 03/20/17 21:20 Motrin - PO 400 mg Q6H PRN Administration SEVERE PAIN Lidocaine HCl 20 ml 03/18/17 14:30 Xylocaine 2% Viscous Oral - MM Q6HPO PRN ORAL PAIN/MOUTH SORES Loperamide HCl 4 mg 03/07/17 14:32 Imodium - PO Q6H PRN DIARRHEA Magnesium Citrate 300 ml 03/07/17 14:32 Citroma - PO Q48H PRN CONSTIPATION Magnesium Hydroxide 30 ml 03/07/17 14:32 Milk Of Magnesia - PO DAILY PRN CONSTIPATION Nicotine 14 mg 03/07/17 15:00 03/21/17 09:59 Nicoderm Patch - TD Not Given DAILY MARIANN Nicotine Polacrilex 2 mg 03/07/17 14:32 Nicorette Gum - BUC Q2H PRN NICOTINE REPLACEMENT RX Penicillin V Potassium 500 mg 03/18/17 18:00 03/21/17 12:26 Pen Vee K - PO 500 mg Q6HPO MARIANN Administration Multivit/Folic Acid/Iron 1 tab 03/08/17 10:00 03/21/17 09:58 Vitamins (Sjr) - PO 1 tab DAILY MARIANN Administration Pseudoephedrine/Triprolidine 1 combo 03/07/17 14:32 Actifed - PO TID PRN NASAL CONGESTION Risperidone 1 mg 03/12/17 22:00 03/20/17 21:21 Risperdal - PO Not Given HS MARIANN Thiamine HCl 100 mg 03/07/17 22:00 03/20/17 21:22 Vitamin B1 - PO Not Given HS MARIANN Tolnaftate 1 applic 03/19/17 14:00 03/21/17 10:01 Tinactin 1% Cream - TP Not Given BID MARIANN Witch Roseanna/Glycerin 1 pad 03/14/17 21:32 03/19/17 09:56 Tucks Pads - TP 1 pad PRN PRN Administration PAIN Current Side Effect: No Lab tests ordered: No Lab tests reviewed: Yes Provider note:: Patient will complete his treatment on 03/22/17 and meet his goals , will continue to address his issues at [facility]. OPD, he gained insights into his problems and motivated to continue his abstinence. He focused on importance of changning attitudes, behavior for the utilization of supports to perevent relapses and improving coping skills.Patient reports finding Risperdal and Prozac help to cope with mood instability, anxiety reduction and insomnia (scripts provideded for 30 days ). Supportive therapy privided, patient is stable for discharge tomorrow. Total face to face time:: 15 Mental Status Exam - Mental Status Exam Alert and Oriented to: Time, Place, Person Cognitive Function: Good Patient Appearance: Well Groomed Mood: Hopeful Affect: Appropriate, Mood Congruent, Normal Range Patient Behavior: Appropriate, Cooperative Speech Pattern: Clear, Appropriate Thought Process: Intact Hallucinations: Denies Suicidal Ideation: Denies Homicidal Ideation: Denies Insight/Judgement: Fair Sleep: Fair Appetite: Fair Muscle strength/Tone: Normal Gait/Station: Normal Psychiatric Treatment Plan - Problem List (1) Nicotine dependence Current Visit: Yes (2) Schizoaffective disorder Current Visit: Yes Comment: Self-report.Non compliant with medications. (3) Opioid dependence Current Visit: Yes
[2017-03-21] MEDS: risperiDONE 1 MG TABLET (FP) PO SCH (21:39)
[2017-03-21] MEDS: THIAMINE HCL 100 MG TABLET (FP) PO SCH (21:39)
[2017-03-22] MEDS: PENICILLIN V POTASSIUM 500 MG TABLET PO SCH (06:10)
[2017-03-22] MEDS: IBUPROFEN 400 MG TABLET (FP) PO PRN (06:11)
[2017-03-22 07:01] VITALS: BP 156/100; PULSE 83; TEMP 97.9
[2017-03-22] MEDS: cloNIDine HCL 0.1 MG TABLET PO SCH (09:39)
[2017-03-22] MEDS: NICOTINE 14 MG/24 HOURS TOPICAL PATCH TD SCH (09:39)
[2017-03-22] MEDS: PRENATAL VITAMINS W/ FOLIC ACID TABLET (FP) PO SCH (09:39)
[2017-03-22] MEDS: HYDROCORTISONE 2.5% TOPICAL CREAM 30 GM TUBE TP SCH (09:39)
[2017-03-22] MEDS: FLUoxetine HCL 10 MG CAPSULE (FP) PO SCH (09:39)
[2017-03-22] MEDS: TOLNAFTATE 1% CREAM 15 GM TUBE TP SCH (10:12)
== END 2017-03-22 09:50 | disposition home or self-care (01) | DRG 895 ==
LOC: YASAS 08:40 → Y6N 13:43 → Y3W 03-11 15:23
PROVIDERS: ADMIT Internal Medicine; ATTEND Psychiatry & Neurology Psychiatry
PROC: HZ2ZZZZ Detoxification Services for Substance Abuse Treatment (ICD-10-PCS; 2017-03-11)
PROC: HZ42ZZZ Group Counseling for Substance Abuse Treatment, Cognitive-Behavioral (ICD-10-PCS; principal; 2017-03-22)
DX: F11.23 Opioid dependence with withdrawal (principal); E70.0 Classical phenylketonuria; Z68.41 Body mass index [BMI] 40.0-44.9, adult; F17.210 Nicotine dependence, cigarettes, uncomplicated; F25.9 Schizoaffective disorder, unspecified; F19.24 Other psychoactive substance dependence with psychoactive substance-induced mood disorder; I10 Essential (primary) hypertension; E66.09 Other obesity due to excess calories
CPT/HCPCS: 36415; 80053; 81003; 81015; 85027; 85660; 86593; 87389; 93005; 93010; J2794